=== PATIENT | female | born 1980 | race Caucasian/White ===

== ENCOUNTER 2017-09-10 07:55 | Day surgery (SDC) | END 2017-09-10 11:44 | disposition home or self-care (01) ==

== ENCOUNTER 2019-02-07 12:08 | Day surgery (SDC) | payer OTHER ==
[~2019-02-07] VITALS: Ht 157.5 cm; Wt 66.9 kg
[~2019-02-07 12:08] MED LIST: CEFAZOLIN 1 GM/50 ML (PMX) 50 ML IVPB SCH; DICY10CA40 PO; GABA100C14 PO; SOD CHLORIDE 0.9% 1,000 ML IV SCH
[2019-02-07] MEDS ORDERED: CHLO100T11 ORAL (12:37)
[2019-02-07 14:51] VITALS: Ht 157.5 cm; Wt 66.9 kg
[2019-02-07 14:56] VITALS: BP 105/61; PULSE 57; RESP 16
[2019-02-07] MEDS ORDERED: LIDOCAINE 2% (MDV) 20 ML INJ ONE (17:36)
[2019-02-07] MEDS ORDERED: BUPIVACAINE 0.5% (SDV) 30 ML INJ ONE (17:36)
[2019-02-07] MEDS ORDERED: BUPIVACAINE 0.25% (MPF) 30 ML INJ ONE (17:37)
--- NOTE | 2019-02-07 17:42 | PREAC ---
Date/Time of Note Date/Time of Note DATE: 02/07/19 TIME: 17:39 Anesthesia Eval and Record Evaluation Time Pre-Procedure Interview DATE: 02/07/19 TIME: 17:39 Age 38 Sex female NPO: 8 hrs Preoperative diagnosis Lt groin mass Planned procedure Excision of lt groin mass Past Medical History Past Medical History: None Surgery & Anesthesia Issues No known issue Meds Anticoagulation: No Beta Espinoza within 24 hr: No Reason Beta Espinoza not given: Pt. not on B-Espinoza Reported Medications Chlorpromazine Hcl* (Chlorpromazine Hcl*) 100 Mg Tablet, 1 TAB ORAL DAILY 02/07/19 Dicyclomine HCl (Dicyclomine HCl) 10 Mg Capsule, 10 MG PO DAILY PRN for PAIN LEVEL 1-3, CAP 09/10/17 Discontinued Reported Medications Gabapentin* (Gabapentin*) 100 Mg Capsule, 100 MG PO TID, #90 CAP 09/10/17 Current Medications Sodium Chloride 1,000 ml @ 75 mls/hr [id number] IV ; Start 02/07/19 at 06:00; Stop 02/07/19 at 19:19 Cefazolin Sodium 50 ml @ 100 mls/hr PREOP IVPB ; Start 02/07/19 at 06:00; Stop 02/07/19 at 19:00 Meds reviewed: Yes Allergies Coded Allergies: morphine (Verified Allergy, Unknown, 02/07/19) Allergies Reviewed: Yes Labs/Studies Labs Reviewed: Reviewed by anesthesiologist Result Diagram: 02/07/19 1431 02/07/19 1431 Laboratory Tests 02/07/19 14:31 test: Negative Studies: ECG Pre-procedure Exam Last vitals Vital Signs Date Temp Pulse Resp B/P (MAP) Pulse Ox O2 O2 Flow FiO2 Time Delivery Rate 02/07/19 97.8 57 16 105/61 96 Room Air 14:56 (76) Airway: Adequate mouth opening, Adequate thyromental dist Mallampati: Mallampati II Teeth: Normal Lung: Normal Heart: Normal ASA Physical Status ASA physical status: 2 Emergency: None Planned Anesthetic General/MAC: LMA Planned Pain Management Parenteral pain med Pre-operative Attestations Prior to commencing anesthesia and surgery, the patient was re-evaluated, there was verification of: *The patient's identity *The results of appropriate recent lab work and preoperative vital signs *The above evaluation not changing prior to induction *Anesthetic plan, risk benefits, alternative and complications discussed with patient/family; questions answered; patient/family understands, accepts and wishes to proceed. ALESIA MUNIZ MD Feb 07, 2019 17:42
[2019-02-07] MEDS ORDERED: FENTAnyl 50 MCG/ML VIAL ONE (17:52)
[2019-02-07] MEDS ORDERED: MIDAZOLAM 1 MG/ML 2 ML INJ ONE (17:52)
[2019-02-07] MEDS ORDERED: LIDOCAINE 2% (SDV) 5 ML INJ ONE (18:18)
[2019-02-07] MEDS ORDERED: PROPOFOL 20 ML ONE (18:18)
[2019-02-07] MEDS ORDERED: CEFAZOLIN 1 GM INJ ONE (18:19)
[2019-02-07] MEDS ORDERED: ONDANSETRON 4 MG INJ ONE (18:19)
--- NOTE | 2019-02-07 18:22 | OPR ---
Date/Time of Note Date/Time of Note DATE: 02/07/19 TIME: 18:20 Operative Report Procedure Date: Feb 07, 2019 Preoperative Diagnosis left groin mass Postoperative Diagnosis same Operation/Procedure Performed 1. excision of left groin mass 6 x 2 cm mass 2. localized adjacent tissue transfer with the use of skin flaps 12 sq cm defect of left groin 3. therapeutic injection of subcutaneous local anesthesia Surgeon see signature line Dock Manager none Anesthesia Type: general Estimated Blood Loss: 0 - 10 ml's Transfusion none Specimen left groin mass Grafts/Implants none Complications none Pt Condition Post Procedure: stable Indications This is a 38-year-old female with a left groin mass. She requests surgical excision. Risks alternatives benefits and personal were discussed the patient. Patient expressed understanding and consents to the operation. Procedure Description Patient is taken to the OR and prepped and draped in usual sterile fashion. Surgical time was performed. IV antibiotics given. Elliptical incision was made over the left groin mass. Dissection with cautery skin onto the mass and the mass was circumferentially excised. Good hemostasis status. Due to tissue defect localization just transfer with use of skin flaps was performed. Ultimately closed with interrupted 3-0 Vicryl and skin yaquelin. Therapeutic contains local anesthesia injected at the incision site. Dry dressings were applied. Elvia CHONG Feb 07, 2019 18:22
[2019-02-07] MEDS ORDERED: HYDROCODONE/APAP (5/325) TAB PO ONE (18:30)
[2019-02-07 18:32] VITALS: BP 141/96; PULSE 96; RESP 18
--- NOTE | 2019-02-07 18:36 | PAC ---
Date/Time of Note Date/Time of Note DATE: 02/07/19 TIME: 18:36 Post-Anesthesia Notes Post-Anesthesia Note Last documented vital signs Vital Signs Date Temp Pulse Resp B/P (MAP) Pulse Ox O2 O2 Flow FiO2 Time Delivery Rate 02/07/19 97.8 57 16 105/61 96 Room Air 14:56 (76) Activity: WNL Respiratory function: WNL Cardiovascular function: WNL Mental status: Baseline Pain reasonably controlled: Yes Hydration appropriate: Yes Nausea/Vomiting absent: Yes Comments BP:122/67, P:68, Spo2:100%, T:98,8 ALESIA MUNIZ MD Feb 07, 2019 18:36
[2019-02-07 18:37] VITALS: BP 142/90; PULSE 90; RESP 16
[2019-02-07 18:47] VITALS: BP 137/94; PULSE 92; RESP 19
[2019-02-07 18:52] VITALS: BP 110/70; PULSE 91; RESP 20
[2019-02-07] MEDS ORDERED: MEPERIDINE 25 MG INJ IV PRN (19:00)
[2019-02-07] MEDS ORDERED: FENTAnyl 50 MCG/ML VIAL IV PRN (19:00)
[2019-02-07] MEDS ORDERED: DIPHENHYDRAMINE 50 MG INJ IV PRN (19:00)
[2019-02-07] MEDS ORDERED: ONDANSETRON 4 MG INJ IV PRN (19:00)
[2019-02-07] MEDS ORDERED: METOCLOPRAMIDE 10 MG INJ IV PRN (19:00)
== END 2019-02-07 19:35 | disposition home or self-care (01) ==
LOC: SDS 12:08
PROVIDERS: ATTEND Surgery
DX: D17.1 Benign lipomatous neoplasm of skin and subcutaneous tissue of trunk (principal)
CPT/HCPCS: 14001; 80053; 85025; 85610; 85730; 88307; J0690; J2250; J2405; J3010